=== PATIENT | male | born 2005 | race Two or more races ===

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

== ENCOUNTER 2023-10-07 10:17 | Emergency (ER) | payer OTHER ==
[~2023-10-07] VITALS: Ht 190.5 cm; Wt 172.9 kg
[2023-10-07 11:17] VITALS: BP 140/84; PULSE 58; RESP 16; TEMP 97.5; O2SAT 99
== END 2023-10-07 12:56 | disposition home or self-care (01) ==
LOC: ER 10:17
DX: S00.03XA Contusion of scalp, initial encounter (principal); R51.9 Headache, unspecified; W22.8XXA Striking against or struck by other objects, initial encounter; Y93.89 Activity, other specified; Y92.89 Other specified places as the place of occurrence of the external cause; Y99.8 Other external cause status
CPT/HCPCS: 70450

== ENCOUNTER 2024-04-20 13:12 | Emergency (ER) | payer OTHER ==
[~2024-04-20] VITALS: Ht 190.5 cm; Wt 173.7 kg
[2024-04-20 13:35] VITALS: BP 133/69; PULSE 81; RESP 18; TEMP 98.3; O2SAT 98
[2024-04-20] MEDS ORDERED: IBUP-1456 PO (13:46)
== END 2024-04-20 14:05 | disposition home or self-care (01) ==
LOC: ER 13:15
DX: S93.491A Sprain of other ligament of right ankle, initial encounter (principal); X50.1XXA Overexertion from prolonged static or awkward postures, initial encounter; Y93.89 Activity, other specified; Y92.89 Other specified places as the place of occurrence of the external cause; Y99.8 Other external cause status

== ENCOUNTER 2024-12-13 19:30 | Inpatient (IN) | payer OTHER ==
[~2024-12-13] VITALS: Ht 190.5 cm; Wt 177.4 kg
[~2024-12-13 19:30] MED LIST: IBUP-1456 PO
--- NOTE | 2024-12-13 19:40 | ED.PDOC ---
GI ASSESSMENT HPI Comments This is a 19 year old male presenting to the ED with chief complaint of abdominal pain and syncope. EMS reports that the patient has been experiencing diarrhea all day today, then started to have epigastric pain since 2pm. EMS relays that while the patient was at the pool with his children, he needed to go to the bathroom and then started to experience cold sweats and an associated near-syncopal episode. Patient states that he called 911 upon going home from the pool where EMS examined him and advised him to call again if his symptoms continued. Patient notes that he called 911 again due to continue to feel weak and having diarrhea/abdominal pain. Patient denies any nausea, vomiting, chest pain, SOB, fever, or chills. Time Seen by MD: 19:35 Primary Care Provider: [place] Reviewed Notes: Nurses Notes, Business Project Analyst Notes, Medications, Allergies Allergies: Coded Allergies: NO KNOWN ALLERGIES (Unverified , 02/16/10) Home Meds Active Scripts Ibuprofen (Ibuprofen) 800 Mg Tab, 1 TAB PO TID, #30 TAB Prov:MIREYA LOCKE 04/20/24 Information Source: Patient, Emergency Med Personnel Mode of Arrival: EMS Timing: Hours Duration: Since onset Prehospital treatment: None Quality: Sharp Vomitus: None Stool: Watery Severity: Moderate Recent: None Recent Hx of: None Pain Location: Epigastric Modifying Factors: Nothing Associated sign and symptoms: Diarrhea, Abdominal Pain Past Medical History PAST MEDICAL HISTORY: Denies Surgical History: Denies all surgeries Family History Family History: Reviewed,noncontributory to illness, Family hx of DM Social History Smoker: Non-Smoker Alcohol: Denies ETOH Use Drugs: Denies Drug Use Lives In: Home Constitutional: reports: sweats; denies: chills, diaphoresis, fatigue, fever, malaise, weakness, others EENTM: denies: blurred vision, double vision, ear bleeding, ear discharge, ear drainage, ear pain, ear ringing, eye pain, eye redness, hearing loss, mouth pain, mouth swelling, nasal discharge, nose bleeding, nose congestion, nose pain, photophobia, tearing, throat pain, throat swelling, voice changes, others Respiratory: denies: cough, hemoptysis, orthopnea, SOB at rest, shortness of breath, SOB with excertion, stridor, wheezing, others Cardiovascular: reports: syncope; denies: chest pain, dizzy spells, diaphoresis, Dyspnea on exertion, edema, irregular heart beat, left arm pain, lightheadedness, palpitations, PND, others Gastrointestinal: reports: abdominal pain, diarrhea; denies: abdomen distended, blood streaked bowels, constipated, dysphagia, difficulty swallowing, hematemesis, melena, nausea, poor appetite, poor fluid intake, rectal bleeding, rectal pain, vomiting, others Genitourinary: denies: burning, dysuria, flank pain, frequency, hematuria, incontinence, penile discharge, penile sore, pain, testicle pain, testicle swelling, urgency, others Neurological: denies: dizziness, fainting, headache, left sided numbness, left sided weakness, numbness, paresthesia, pre-existing deficit, right sided numbness, right sided weakness, seizure, speech problems, tingling, tremors, weakness, others Musculoskeletal: denies: back pain, gout, joint pain, joint swelling, muscle pain, muscle stiffness, neck pain, others Integumetry: denies: bruises, change in color, change in hair/nails, dryness, laceration, lesions, lumps, rash, wounds, others Allergic/Immunocompromised: denies: Difficulty Healing, Frequent Infections, Hives, Itching, others Hematologic/Lymphatic: denies: anemia, blood clots, easy bleeding, easy bruising, swollen glands, others Endocrine: denies: excessive hunger, excessive sweating, excessive thirst, excessive urination, flushing, intolerance to cold, intolerance to heat, unexplained weight gain, unexplained weight loss, others Psychiatric: denies: anxiety, bipolar disorder, depression, hopeless, panic disorder, schizophrenia, sleepless, suicidal, others All Other Systems: Reviewed and Negative Physical Exam General Appearance: Moderate Distress HEENT: Normal ENT Inspection, Pharynx Normal, TMs Normal Neck: Full Range of Motion, Non-Tender, Normal, Normal Inspection Respiratory: Chest Non-Tender, Lungs Clear, No Accessory Muscle Use, No Respiratory Distress, Normal Breath Sounds Cardiovascular: No Edema, No JVD, No Murmur, No Gallop, Normal Peripheral Pulses, Regular Rate/Rhythm Breast Exam: Deferred Gastrointestinal: Epigastric, No Organomegaly, No Pulsatile Mass, Normal Bowel Sounds, Soft, Tenderness Genitalia: Deferred Pelvic: Deferred Rectal: Deferred Extremities: No calf tenderness, Normal capillary refill, No pedal edema Musculoskeletal : Apperance: Normal Neurologic: Alert, labor law professor II-XII nml as Tested, Motor Weakness, Normal Affect, Normal Mood, No Sensory Deficits Cerebellar Function: Normal Reflexes: Normal Skin: Dry, Normal Color, Warm Lymphatic: No Adenopathy EKG EKG : Pulse Rate (adult): 75 [place]: Normal Cardiac Rhythm: NSR Block: None Hypertrophy: None ST: Normal Was a procedure done? Was a procedure done?: No GI differential Dx Differential Diagnosis: Appendicitis, Gastritis/PUD, Gastroenteritis, Pancreatitis, UTI, Electrolyte Imbalance, Food Poisoning X-Ray, Labs, Meds, VS Vital Signs Date Time Temp Pulse Resp B/P (MAP) Pulse Ox O2 Delivery O2 Flow Rate FiO2 12/13/24 19:40 75 12/13/24 19:38 75 12/13/24 19:35 97.8 90 24 128/71 (90) 100 97.8 Lab Test 12/13/24 20:45 12/13/24 19:54 Range/Units Troponin I High Sensitivity Pending < 3 L </=54 ng/L White Blood Count 27.7 H 4.4-10.8 10^3/uL Red Blood Count 5.99 H 4.5-5.90 10^6/uL Hemoglobin 15.3 13.5-17.5 g/dL Hematocrit 46.7 41.0-53.0 % Mean Corpuscular Volume 78.0 L 80.0-100.0 fL Mean Corpuscular Hemoglobin 25.6 L 28.0-32.0 pg Mean Corpuscular Hemoglobin Concent 32.8 32.0-36.0 g/dL Red Cell Distribution Width 14.3 11.8-14.3 % Platelet Count 424 140-450 10^3/uL Mean Platelet Volume 7.3 6.9-10.8 fL Neutrophils (%) (Auto) 37.0-80.0 % Lymphocytes (%) (Auto) 10.0-50.0 % Monocytes (%) (Auto) 0.0-12.0 % Basophils (%) (Auto) 0.0-2.0 % Neutrophils # (Auto) 1.6-8.6 10 ^3/uL Lymphocytes # (Auto) 0.4-5.4 10 ^3/uL Monocytes # (Auto) 0-1.3 10 ^3/uL Differential Total Cells Counted 100.0 100 Neutrophils % (Manual) 88 H 37.0-80.0 Band Neutrophils % (Manual) 4 Lymphocytes % (Manual) 4 L 10.0-50.0 Monocytes % (Manual) 3 0-12 Eosinophils % (Manual) 1 0-7 Basophils % (Manual) 0 0.0-2.0 Metamyelocytes % (manual) 0 Myelocytes % (Manual) 0 Promyelocytes % (Manual) 0 Blast Cells % (Manual) 0 Reactive Lymphocytes 0 Platelet Estimate Adequate Microcytosis Slight Sodium Level 143 136-145 mmol/L Potassium Level 4.0 3.5-5.1 mmol/L Chloride Level 107 98-107 mmol/L Carbon Dioxide Level 25 20-31 mmol/L Anion Gap 11 5-15 Blood Urea Nitrogen 14 9-23 mg/dL Creatinine 1.28 0.700-1.30 mg/dL Glomerular Filtration Rate Calc 82 >90 mL/min BUN/Creatinine Ratio 10.9 10.0-20.0 Serum Glucose 100 74-106 mg/dL Calcium Level 10.7 H 8.7-10.4 mg/dL The chest x-ray is negative The CBC shows an elevated white blood cell count of 27 0.7 The troponin level is negative The chemistry panel is within limits An IV Hep-Lock was established and the patient was given normal saline as a bolus The patient is being admitted at this time Images Reviewed?: Images reviewed and evaluated by me Time of 1ST Reevaluation: 21:22 Reevaluation 1ST: Unchanged Patient Education/Counseling: Diagnosis, Treatment, Prognosis Family Education/Counseling: No Family Present SEPSIS Sepsis Screen Physician Orders Heplock Iv (12/13/24 19:35) Sodium Chloride 0.9% (12/13/24 19:45) Executive Vice President And Chief Financial Officer (12/13/24 19:35) Blood Pressure (12/13/24 19:35) Pulse Oximetry (12/13/24 19:35) Urinalysis (12/13/24 19:35) Electrocardigram (12/13/24 19:35) Troponin-I Hs (12/13/24 20:35) Troponin-I Hs (12/13/24 22:35) Electrocardigram (12/13/24 20:35) Electrocardigram (12/13/24 22:35) Chest Portable (12/13/24 20:17) Vital Signs Date Time Temp Pulse Resp B/P (MAP) Pulse Ox O2 Delivery O2 Flow Rate FiO2 12/13/24 19:40 75 12/13/24 19:38 75 12/13/24 19:35 97.8 90 24 128/71 (90) 100 97.8 Laboratory Tests Test 12/13/24 19:54 White Blood Count 27.7 10^3/uL (4.4-10.8) H Departure 1 Departure Time of Disposition: 21:22 Impression: Primary Impression: Episode of syncope Qualified Codes: R55 - Syncope and collapse Additional Impressions: Generalized weakness Diarrhea Qualified Codes: R19.7 - Diarrhea, unspecified Leukocytosis Qualified Codes: D72.829 - Elevated white blood cell count, unspecified Disposition: ADMITTED INPATIENT Admit to: Med Surg Condition: Fair Critical Care Note Critical Care Time?: No Stability Stability form required: Yes Unstable for transfer: ED Physician Assesment (Clinical assesment) Heart Score Heart Score: Heart Score Response (Comments) Value History N/A 0 EKG N/A 0 Age N/A 0 Risk Factors N/A 0 Troponin N/A 0 Total 0 I personally scribed for CHELSEA BAUTISTA MD ([email or web address]) on 12/13/24 at 19:40. Electronically submitted by Han Arellano ([email or web address]). CHELSEA BAUTISTA MD Dec 13, 2024 19:40
[2024-12-13] MEDS: SODIUM CHLORIDE 0.9% 1,000 ML IVB ONE (19:45)
[2024-12-13 20:08] LABS: Hematocrit 46.7 % (41.0-53.0); Hemoglobin 15.3 g/dL (13.5-17.5); Mean Corpuscular Hemoglobin 25.6 pg (28.0-32.0); Mean Corpuscular Hgb Conc. 32.8 g/dL (32.0-36.0); Platelet Count (auto) 424 10^3/uL (140-450); Red Blood Cells 5.99 10^6/uL (4.5-5.90); Red Cell Distribution Width 14.3 % (11.8-14.3); White Blood Cell 27.7 10^3/uL (4.4-10.8)
[2024-12-13 20:10] LABS: Basophils % (manual) 0 (0.0-2.0); Blast Cells 0; Metamyelocytes % 0; Myelocytes % 0; Promyelocytes % 0; Reactive Lymphocytes 0
[2024-12-13 20:15] LABS: Chloride 107 mmol/L (98-107); Sodium 143 mmol/L (136-145)
[2024-12-13 20:16] LABS: Anion Gap 11 (5-15); Carbon Dioxide 25 mmol/L (20-31)
[2024-12-13 20:21] LABS: Glucose 100 mg/dL (74-106)
[2024-12-13 20:30] LABS: Band Neutrophils % (manual) 4; Eosinophils % (manual) 1 (0-7); Lymphocytes % (manual) 4 (10.0-50.0); Monocytes % (manual) 3 (0-12); Platelet Estimate Adequate
[2024-12-13 20:37] LABS: Calcium 10.7 mg/dL (8.7-10.4)
[2024-12-13 20:38] LABS: BUN/Creatinine Ratio 10.9 (10.0-20.0); Blood Urea Nitrogen 14 mg/dL (9-23)
--- NOTE | 2024-12-13 21:12 | DVH ---
CHEST RADIOGRAPH Indication: CP Technique: Single frontal view of the chest was obtained Comparison: None FINDINGS: Lines and Tubes: None Lungs: No focal consolidation. Pleura: No effusion. No pneumothorax. Cardiomediastinal contours: Unremarkable Bones: No acute osseous abnormality. IMPRESSION: 1. No acute cardiopulmonary disease.
[2024-12-13] MEDS: SODIUM CHLORIDE 0.9% 1,000 ML IV ONE (22:15)
[2024-12-13] MEDS ORDERED: ceFAZolin 2 GM/D5W50ml 50 ML IV ONE (22:15)
[2024-12-13] MEDS: ONDANSETRON HCL 4 MG/2 ML VIAL IV ONE (22:15)
[2024-12-13] MEDS: IOHEXOL 300 MG/ML 100ML BOTTLE IJ ONE (22:19)
[2024-12-13] MEDS ORDERED: MORPHINE SULFATE INJ 2 MG/ml SYRG IV PRN ×2 (22:45)
[2024-12-13] MEDS: SODIUM CHLORIDE 0.9% 1,000 ML IV SCH (22:45)
[2024-12-13] MEDS ORDERED: ONDANSETRON HCL 4 MG/2 ML VIAL IV PRN (22:45)
[2024-12-13] MEDS ORDERED: NITROGLYCERIN 0.4 MG SL TAB SL PRN (22:45)
[2024-12-13] MEDS ORDERED: ACETAMINOPHEN 325 MG TAB PO PRN (22:45)
[2024-12-13] MEDS ORDERED: [UNRECOGNIZED DRUG - OTHER] IV ONE (23:15)
--- NOTE | 2024-12-13 23:19 | DVHHPRES ---
History of Present Illness Resident Creating Document: LUIZ GUZMAN RESIDENT History of Present Illness Mr. Garcia, a 19-year-old male with no significant past medical or surgical history presents to the ED via EMS with complaints of epigastric abdominal pain and a near-syncopal episode. He reports experiencing watery diarrhea throughout the day, followed by the onset of sharp epigastric pain around 2 PM. While at the pool with his children, he developed cold sweats and nearly fainted after using the restroom. He initially contacted EMS but declined transport; however, he called again after symptoms persisted, including continued weakness, diarrhea, and abdominal pain. He denies nausea, vomiting, chest pain, shortness of breath, fever, or chills. He is a non-smoker, denies alcohol and drug use, and lives at home. Differential diagnoses include gastroenteritis, gastritis/PUD, appendicitis, pancreatitis, UTI, electrolyte imbalance, Intra- abdominal abscess, and foodborne illness. Patient is admitted in hospital for further workup and management. Past Medical History Denies past medical history Past Surgical History: None Past Surgical History Denies past surgical history Family History: None, DM, Other (Noncontributory the hospitalization) Smoke: No ALCOHOL: rare Drugs: None Lives: with Family (Children family) Domestic Violence: Neg Review of Systems Constitutional: Yes: Chills, Sweats, Weakness, Malaise; No: Fever, Other Eyes: No: Pain, Vision change, Conjunctivae inflammation, Eyelid inflammation, Other, Redness ENT: No: Ear pain, Ear discharge, Nose pain, Nose discharge, Nose congestion, Mouth pain, Mouth swelling, Throat pain, Throat swelling, Other Respiratory: No: Cough, Dry, Shortness of breath, SOB with excertion, Wheezing, Hemoptysis, Pleuritic Pain, Sputum, Wheezing, Other Cardiovascular: Lt Headedness; No: Chest Pain, Palpitations, Orthopnea, Paroxysmal Noc. Dyspnea, Edema, Other Gastrointestinal: Nausea, Vomiting, Abdominal Pain, Diarrhea; No: Constipation, Melena, Hematochezia, Other Genitourinary: No Dysuria, No Frequency, No Incontinence, No Hematuria, No Retention, No Other Musculoskeletal: No: other, neck pain, shoulder pain, arm pain, back pain, hand pain, leg pain, foot pain Skin: No: Rash, Lesions, Jaundice, Bruising, Other Neurological: No: Weakness, Numbness, Incoordination, Change in speech, Confusion, Seizures, Other Allergies: Coded Allergies: NO KNOWN ALLERGIES (Unverified , 02/16/10) Medications Current Medications Medications Dose Ordered Sig/Felipe Route Start Time Stop Time Status Last Admin Dose Admin Sodium Chloride 1,000 ml @ 120 mls/hr Q8H20M IV 12/13/24 22:45 Ondansetron HCl 4 mg Q4HP PRN IV 12/13/24 22:45 Acetaminophen 650 mg Q6HP PRN PO 12/13/24 22:45 Morphine Sulfate 2 mg Q4HPRN PRN IV 12/13/24 22:45 Nitroglycerin 0.4 mg Q5MINP PRN SL 12/13/24 22:45 Morphine Sulfate 2 mg Q30M PRN IV 12/13/24 22:45 Pantoprazole Sodium 40 mg BID IV 12/13/24 23:00 UNV Exam Vital Signs Vital Signs Date Time Temp Pulse Resp B/P (MAP) Pulse Ox O2 Delivery O2 Flow Rate FiO2 12/13/24 21:45 98.5 98 19 134/81 (98) 96 98.5 General Appearance: Alert, Oriented X3, Cooperative, mild distress HEENT: Atraumatic, PERRLA, EOMI, Other (Dry mucous membrane, low turgor) Respiratory: Clear to auscultation, Normal air movement, Other (Breathing in the room air) Cardiovascular: Regular rate, Normal S1, Normal S2, No murmurs, Other (Hemodynamically stable) Abdominal: Soft, No hepatospenomegaly, No masses, Other (Increased GI bowel sounds no focal tenderness noted.) Extremities: No clubbing, No cyanosis, No edema, Normal pulses, No tenderness/swelling Skin: No rashes, No breakdown, No significant lesion Neuro: Normal gait, Normal speech, Strength at 5/5 X4 ext, Normal tone, Sensation intact, Cranial nerves 3-12 NL, Reflexes 2+, Other (No focal neuro deficits) Psych/Mental Status: Mental status NL, Mood NL, Other (Tired) Labs/Xrays Labs Test 12/13/24 20:54 12/13/24 20:45 12/13/24 19:54 Range/Units Troponin I High Sensitivity < 3 L </=54 ng/L White Blood Count 27.7 H 4.4-10.8 10^3/uL Red Blood Count 5.99 H 4.5-5.90 10^6/uL Hemoglobin 15.3 13.5-17.5 g/dL Hematocrit 46.7 41.0-53.0 % Mean Corpuscular Volume 78.0 L 80.0-100.0 fL Mean Corpuscular Hemoglobin 25.6 L 28.0-32.0 pg Mean Corpuscular Hemoglobin Concent 32.8 32.0-36.0 g/dL Red Cell Distribution Width 14.3 11.8-14.3 % Platelet Count 424 140-450 10^3/uL Mean Platelet Volume 7.3 6.9-10.8 fL Neutrophils (%) (Auto) 37.0-80.0 % Lymphocytes (%) (Auto) 10.0-50.0 % Monocytes (%) (Auto) 0.0-12.0 % Basophils (%) (Auto) 0.0-2.0 % Neutrophils # (Auto) 1.6-8.6 10 ^3/uL Lymphocytes # (Auto) 0.4-5.4 10 ^3/uL Monocytes # (Auto) 0-1.3 10 ^3/uL Differential Total Cells Counted 100.0 100 Neutrophils % (Manual) 88 H 37.0-80.0 Band Neutrophils % (Manual) 4 Lymphocytes % (Manual) 4 L 10.0-50.0 Monocytes % (Manual) 3 0-12 Eosinophils % (Manual) 1 0-7 Basophils % (Manual) 0 0.0-2.0 Metamyelocytes % (manual) 0 Myelocytes % (Manual) 0 Promyelocytes % (Manual) 0 Blast Cells % (Manual) 0 Reactive Lymphocytes 0 Platelet Estimate Adequate Microcytosis Slight Sodium Level 143 136-145 mmol/L Potassium Level 4.0 3.5-5.1 mmol/L Chloride Level 107 98-107 mmol/L Carbon Dioxide Level 25 20-31 mmol/L Anion Gap 11 5-15 Blood Urea Nitrogen 14 9-23 mg/dL Creatinine 1.28 0.700-1.30 mg/dL Glomerular Filtration Rate Calc 82 >90 mL/min BUN/Creatinine Ratio 10.9 10.0-20.0 Serum Glucose 100 74-106 mg/dL Calcium Level 10.7 H 8.7-10.4 mg/dL Assessment/Plan Assessment/Plan #intra-abdominal infection/diarrhea/questionable Dysentery: Acute dysentery, send stool culture, ova parasite, check for MRSA inflammatory bowel disease, GI consult, might need, details sexual history, HIV and immunodeficiency panel to check. CT abdomen pelvis with IV contrast And oral contrast to check. keep the patient NPO. IV hydration to continue. IV Zosyn started to cover both g negatives and anaerobes. CXR unremarkable, no free gas under the diaphragm, nonsurgical abdomen. #Epigastric pain: Microcytic anemia might be early signs of iron deficiency anemia, slow GI bleed, on chronic ibuprofen, continue IV ppi, GI consultation for EGD. #Generalized weakness/ malaise: Likely due to underlying infection, dehydration, possible electrolyte loss, check electrolytes and correct appropriately. #episode of Near syncope: Check Orthostatic vitals, likely GI bleed to rule out, echo, telemetry, check for UDS, alcohol, troponin Unremarkable, EKG. likely due to intravascular hypovolemia, fluid loss, keep the map over 65.. Headache, CT head to rule out any intracranial pathology. differentials include vasovagal attack. #Sepsis likely due to intra-abdominal infection: Check lactate, continue sepsis dose fluid and continue hydration, keep the patient NPO. #Mild hypercalcemia: check albumin, check corrected calcium, ESR CRP to check, avoid lactate. #Possible underlying chronic blood-loss anemia: transfusion threshold 7 or below of hemoglobin, continue IV PPI b.i.d for possible underlying epigastric discomfort, If bleeding not controlled, we will upgrade to IV PPI continuous infusion. Check for PT PICC/PTT/ INR. #Likely underlying chronic iron-deficiency anemia: Check for iron panel, elly tin, replenish as needed. if needed IV iron infusion, advised today for from chronic NSAID use #Grade 3 morbid obesity: BMI of 48.09, weight loss counseling, check for TSH, lipid panel and HbA1c #Possible KELLY likely due to VMN: hydration to continue, avoid nephrotoxic, no known baseline , serial renal function test #Possible underlying CKD stage IV: Although it is a presumption, GFR 82, follow trend, unfortunately low previous labs available. #GI prophylaxis: IV PPI b.i.d. for now with possible underlying GI bleed> stool occult blood to check> if ruled out can be changed to daily IV PPI/oral for possible underlying PUD #DVT prophylaxis: SCDs: Avoid aspirin NSAIDs and anticoagulation. PCP: Dr. Gabriel. Specialist Relevant To Admission: GI/ Gastroenterology for GI bleed needing further evaluation with endoscopic measures. Case discussed with Dr. Yi. Code Status: Full Code. Goals of care and care planning discussion needed total 37 minutes bedside. Patient is agreeable to admission to the in-hospital for further workup and management. Plan discussed with: Patient My Orders Orders - LUIZ GUZMAN RESIDENT Procedure Category Date Status Time Admit ADMIT 12/13/24 Transmitted 22:39 Allergies ARDEN 12/13/24 In Process 22:39 Code Status CODE 12/13/24 Transmitted 22:39 Sodium Chloride 0.9% PHA 12/13/24 In Process 22:45 Ondansetron Hcl PHA 12/13/24 In Process (Zofran) 22:45 Complete Blood Count LAB 12/14/24 Verified 04:00 Comprehensive LAB 12/14/24 Verified Metabolic Panel 04:00 Npo (Nothing By DIET 12/14/24 Transmitted Mouth) Diet Breakfast Condition: Critical ARDEN 12/13/24 In Process 22:39 Acetaminophen Tablet PHA 12/13/24 In Process (Tylenol Tablet) 22:45 Bedrest With Bathroom ARDEN 12/13/24 In Process Privileg 22:39 Bedside Commode ARDEN 12/13/24 In Process 22:39 Morphine Sulfate PHA 12/13/24 In Process Injection 22:45 Sequential ARDEN 12/13/24 In Process Compression Device Nitroglycerin PHA 12/13/24 In Process Sublingual (Ntrostat 22:45 Morphine Sulfate PHA 12/13/24 In Process Injection 22:45 Oxygen By Nasal RT 12/13/24 Transmitted Cannula 22:39 Stat Ekg For Chest ARDEN 12/13/24 In Process Pain 22:39 Notify Md Of Changes ARDEN 12/13/24 In Process From Base 22:39 Wildlife Biostation Research Ecologist For ARDEN 12/13/24 In Process 24 Hours 22:39 Emergency Dysrhythmia ARDEN 12/13/24 In Process Protocol 22:39 Rhythm Strips Once ARDEN 12/13/24 In Process Every Shift 22:39 Piperacillin-Tazob PHA 12/13/24 In Process 3.375gm (Zosyn 3.375g 23:00 Thyroid Stimulating LAB 12/13/24 In Process Hormone 22:52 Drug Screen LAB 12/13/24 Logged 22:52 Hepatic Panel LAB 6/25/25 In Process 22:52 Clostridium Difficile JULIO 12/13/24 Logged Toxin 22:52 Ova & Parasite Exam JULIO 12/13/24 Logged 22:52 Stool Bacterial JULIO 12/13/24 Logged Culture 22:52 Gram Stain JULIO 12/13/24 Logged 22:52 Stool Wbc LAB 12/13/24 Logged 22:52 Iron Panel LAB 12/13/24 In Process 22:52 Vancomycin Per [facility] 12/13/24 In Process Pharmacy Protoc 22:58 Pantoprazole PHA 12/13/24 In Process (Protonix) 23:00 Stool Occult Blood LAB 12/13/24 Logged 23:01 Fall Risk Precautions ARDEN 12/13/[address] 23:03 Orthostatic Vital ORDERS 12/13/24 Transmitted Signs 23:03 Hiv 1&2 Antibody LAB 12/13/24 Logged 23:03 Prothrombin Time W/ LAB 12/13/24 Logged INR 23:03 Partial LAB 12/13/24 Logged Thromboplastin Time 23:03 Lactic Acid W/ Reflex LAB 12/13/24 Logged Order 23:03 Lipase LAB 12/13/24 Logged 23:03 Blood Alcohol LAB 12/13/24 Logged 23:03 Date of Service: Dec 13, 2024 Billing Provider: DEWEY YI MD Common Visit Codes: 69621-[id number] INP/OBS CARE (HIGH) Secondary Visit Codes: [id number]-[id number] CARE PLAN 30 MINUTES LUIZ GUZMAN RESIDENT Dec 13, 2024 23:19
[2024-12-13 23:25] LABS: Albumin 5.2 g/dL (3.2-4.8); Bilirubin, Direct 0.2 mg/dL (<0.3); Bilirubin, Total 0.7 mg/dL (0.2-1.0); Total Protein 8.8 g/dL (5.7-8.2)
[2024-12-13 23:39] LABS: % Iron Saturation 8.4 % (20-55)
[2024-12-13 23:45] LABS: INR 0.98 (0.9-1.15); Partial Thromboplastin Time 27.4 SEC (24.5-34.5); Prothrombin Time 10.4 sec (9.3-11.8)
[2024-12-13 23:48] LABS: Blood Alcohol < 3.0 mg/dL (<10)
[2024-12-14] VITALS (9 sets, daily range): BP systolic 112–150; BP diastolic 59–92; PULSE 62–102; RESP 18–20; TEMP 97.8–98.9; O2SAT 96–99
--- NOTE | 2024-12-14 00:02 | DVH ---
EXAM: CT HEAD WITHOUT CONTRAST INDICATION: abdominal pain TECHNIQUE: CT of the head without intravenous contrast. Radiation Dose : 1. Head: CT Dose: CTDI volume is 69 mGy. Dose-length product is 1367 mGy*cm The dose indicators for CT are the volume Computed Tomography (CT) Dose Index (CTDIvol) and the Dose Length Product (DLP), and are measured in units of mGy and mGy-cm, respectively. These indicators are not patient dose, but values generated from the CT scanner acquisition factors. The report includes radiation exposure data for exposures received during this examination. COMPARISON: CT HEAD WITHOUT CONTRAST on DOS: 10/07/23 FINDINGS: There is no evidence of acute intracranial hemorrhage, extra-axial collection, mass effect, midline s hift, herniation or hydrocephalus. The ventricles, sulci and cisterns are age appropriate. The harden-white differentiation is intact. Patchy periventricular and subcortical white matter hypoattenuation is nonspecific but may be related to small vessel ischemic disease. The visualized paranasal sinuses and mastoid air cells are clear. The surrounding soft tissues and osseous structures are unremarkable. IMPRESSION: 1. No acute intracranial abnormality. Radiation optimization: All CT scans at this facility use at least one of these dose optimization james hniques: automated exposure control mA and/or kV adjustment per patient size (includes targeted exam s where dose is matched to clinical indication) or iterative reconstruction.
[2024-12-14 00:07] LABS: Lipase 34 U/L (12-53)
[2024-12-14 00:13] LABS: Erythrocyte Sedimentation Rate 15 mm/hr (0-20)
--- NOTE | 2024-12-14 01:37 | DVH ---
CT OF THE ABDOMEN AND PELVIS WITH CONTRAST. HISTORY: abdominal pain COMPARISON: None TECHNIQUE: Helical axial CT images of the abdomen and pelvis were obtained with intravenous contrast. Multiplanar reformats. One or more of the following radiation dose reduction techniques were used fo r this examination: automated exposure control, adjustment of the mA and/or kV according to patient s ize, use of iterative reconstruction technique. FINDINGS: Imaged lung bases are grossly clear. Liver: No discrete hepatic lesions as visualized. Gallbladder and biliary system: No sizable, radiopaque cholelithiasis or biliary ductal dilatation. Pancreas: Negative. Spleen: Negative. Adrenal Glands: Negative. Kidneys and collecting system: No hydroureteronephrosis. Symmetrical enhancement. Retroperitoneum: No evidence of abdominal aortic aneurysm. Lymph nodes: No discretely enlarged lymph nodes identified. Bowel: No evidence of bowel obstruction. Normal caliber appendix. No free intraperitoneal air or flu id identified. Pelvis: No sizable bladder calculus. Small fat containing right inguinal hernia. Osseous structures: No destructive osseous lesions identified. IMPRESSION: No bowel obstruction, free intraperitoneal air/ fluid or sizable inflammatory collections identified at this time. HS:Y
[2024-12-14] MEDS: PIPERACILLIN-TAZOB 3.375GM 100 ML IV ONE (01:50)
[2024-12-14] MEDS: PANTOPRAZOLE 40 MG/10 ML VIAL INJ IV SCH (01:50)
[2024-12-14 08:07] LABS: Basophils # (auto) 0 10 ^3/uL (0-0.2); Basophils % (auto) 0.1 % (0.0-2.0); Eosinophils # (auto) 0.1 10 ^3/uL (0-0.8)
[2024-12-14 08:11] LABS: Eosinophils % (auto) 0.6 % (0.0-7.0); Hematocrit 42.7 % (41.0-53.0); Hemoglobin 14.1 g/dL (13.5-17.5); Lymphocytes % (auto) 7.2 % (10.0-50.0); Mean Corpuscular Hemoglobin 25.6 pg (28.0-32.0); Mean Corpuscular Hgb Conc. 33.1 g/dL (32.0-36.0); Mean Corpuscular Volume 77.4 fL (80.0-100.0); Monocytes # (auto) 0.8 10 ^3/uL (0-1.3); Monocytes % (auto) 6.3 % (0.0-12.0); Neutrophils # (auto) 11.4 10 ^3/uL (1.6-8.6); Neutrophils % (auto) 85.8 % (37.0-80.0); Platelet Count (auto) 403 10^3/uL (140-450); Red Blood Cells 5.51 10^6/uL (4.5-5.90); White Blood Cell 13.3 10^3/uL (4.4-10.8)
[2024-12-14 08:23] LABS: Alanine Aminotransferase 21 U/L (7-40); Alkaline Phosphatase 111 U/L (46-116); Anion Gap 9 (5-15); BUN/Creatinine Ratio 10.8 (10.0-20.0); Blood Urea Nitrogen 13 mg/dL (9-23); Calcium 9.9 mg/dL (8.7-10.4); Carbon Dioxide 26 mmol/L (20-31); Chloride 106 mmol/L (98-107); Glucose 105 mg/dL (74-106); Potassium 3.8 mmol/L (3.5-5.1); Sodium 141 mmol/L (136-145)
[2024-12-14 08:24] LABS: Albumin 4.8 g/dL (3.2-4.8); Aspartate Aminotransferase 17 U/L (<34)
[2024-12-14] MEDS ORDERED: VANCOMYCIN PER PHARMACY 0 MG IV SCH (08:30)
[2024-12-14 09:36] LABS: Urine Bacteria None Seen /hpf (None Seen)
[2024-12-14] MEDS: VANCOMYCIN 1GM/200ML PM 250 ML IV SCH (09:42)
[2024-12-14 10:12] LABS: Amphetamine Screen, Urine Neg (NEGATIVE); Barbiturate Scree,Urine Neg (NEGATIVE); Benzodiazephine Screen, Urine Neg (NEGATIVE); Cannabinoid Screen, Urine Pos (NEGATIVE); Cocaine Screen, Urine Neg (NEGATIVE); Opiate Scree,Urine Neg (NEGATIVE); Phencyclidine Screen, Urine Neg (NEGATIVE)
[2024-12-14 10:18] LABS: Urine Blood Negative /uL (Negative); Urine Clarity Clear (Clear); Urine Color Yellow (Yellow); Urine Protein, UAD TRACE (Negative); Urine Squamous Epithelial Cell None Seen /hpf (<5); Urine Urobilinogen Normal (Negative); Urine WBC 1 /HPF (0-3); Urine pH 5.5 (5.0-9.0)
[2024-12-14 10:19] LABS: Urine Specific Gravity > 1.050 (1.001-1.035)
--- NOTE | 2024-12-14 10:56 | ECG ---
[facility] Test Date: 2024-12-13 Test Time: 19:38:21 Pat Name: AISHA MORELAND Department: ED Room: 0212T Gender: M [employer] Team Leader: : 2005 Requested By: CHELSEA BAUTISTA Order Number: [id number] Reading MD: Charli Diallo Measurements Intervals [place] Rate: 75 P: 60 NE: 128 QRS: 69 QRSD: 98 T: -1 QT: 389 QTc: 435 Interpretive Statements Sinus rhythm Borderline T wave abnormalities Electronically Signed On 12-16-2024 20:03:15 PDT by Charli Diallo Please click the below link to view image of tracing.
[2024-12-14] MEDS: cefTRIAXone 1GM/50ML D5W 50 ML IV SCH (12:16)
[2024-12-14] MEDS: SODIUM CHLORIDE 0.9% 1,000 ML IV ONE ×2 (12:49→23:43)
[2024-12-14] MEDS: metroNIDAZOLE 500MG/100ML 100 ML IV SCH (14:45)
--- NOTE | 2024-12-14 15:29 | DVHPNRES ---
Progress Note Date Seen: Dec 14, 2024 Resident Creating Document: GAIL ANGUIANO RESIDENT Has the PT tested + for MRSA If YES, has PT been informed?: No Medical Necessity Reason Pt with a Central, PICC or Fol: No Subjective Review of Systems Mr. Garcia, a 19-year-old male with no significant past medical or surgical history presents to the ED via EMS with complaints of epigastric abdominal pain and a near-syncopal episode. He reports experiencing watery diarrhea throughout the day, followed by the onset of sharp epigastric pain around 2 PM. While at the pool with his children, he developed cold sweats and nearly fainted after using the restroom. He initially contacted EMS but declined transport; however, he called again after symptoms persisted, including continued weakness, diarrhea, and abdominal pain. He denies nausea, vomiting, chest pain, shortness of breath, fever, or chills. He is a non-smoker, denies alcohol and drug use, and lives at home. Differential diagnoses include gastroenteritis, gastritis/PUD, appendicitis, pancreatitis, UTI, electrolyte imbalance, Intra- abdominal abscess, and foodborne illness. Patient is admitted in hospital for further workup and management. Past Medical History Denies past medical history Past Surgical History: None Past Surgical History Denies past surgical history Family History: None, DM, Other (Noncontributory the hospitalization) Smoke: No ALCOHOL: rare Drugs: None Lives: with Family (Children family) Domestic Violence: Neg 12/14/24: campylobacter isolated, azythromycin started, continue metronidazole, IV fluids given 1LT bolus Objective vital signs Vital Sign Date Time Temp Pulse Resp B/P (MAP) Pulse Ox O2 Delivery O2 Flow Rate FiO2 12/14/24 13:45 97.8 73 18 121/71 (88) 98 97.8 12/14/24 04:16 Room Air* 0 21 Total Intake and Output 12/13/24 12/13/24 12/14/24 15:00 23:00 07:00 Intake Total 100 ml Balance 100 ml medications Current Medications Medications Dose Ordered Sig/Felipe Route Start Time Stop Time Status Last Admin Dose Admin Ondansetron HCl 4 mg Q4HP PRN IV 12/13/24 22:45 Acetaminophen 650 mg Q6HP PRN PO 12/13/24 22:45 Pantoprazole Sodium 40 mg BID IV 12/13/24 23:00 12/14/24 09:41 40 MG Ceftriaxone Sodium 50 ml @ 100 mls/hr DAILY@09 IV 12/14/24 11:15 12/14/24 12:16 100 MLS/HR Metronidazole 100 ml @ 100 mls/hr Q8HR IV 12/14/24 14:00 12/14/24 14:45 100 MLS/HR Examination General Appearance: Alert, Oriented X3, Cooperative, mild distress HEENT: Atraumatic, PERRLA, EOMI, Other (Dry mucous membrane, low turgor) Respiratory: Clear to auscultation, Normal air movement, Other (Breathing in the room air) Cardiovascular: Regular rate, Normal S1, Normal S2, No murmurs, Other (Hemodynamically stable) Abdominal: Soft, No hepatospenomegaly, No masses, Other (Increased GI bowel sounds no focal tenderness noted.) Extremities: No clubbing, No cyanosis, No edema, Normal pulses, No tenderness/swelling Skin: No rashes, No breakdown, No significant lesion Neuro: Normal gait, Normal speech, Strength at 5/5 X4 ext, Normal tone, Sensation intact, Cranial nerves 3-12 NL, Reflexes 2+, Other (No focal neuro deficits) Psych/Mental Status: Mental status NL, Mood NL, laboratory and microbiology Laboratory Tests 12/14/24 07:23 Test 12/14/24 07:23 Range/Units Serum Glucose 105 74-106 mg/dL Microbiology Date/Time Source Procedure Growth Status 12/14/24 08:30 Stool Received Problem List/Assessment/Plan Problem List/Assessment/Plan #Sepsis due to Acute bacterial gastroenteritis due to campylobacter jejuni #Obesity #Marijuana abuse #KELLY due to VMN Clear liquid diet IV fluids given, 1 extra bolus of NS Azithromycin started Metronidazole Ondansetron Pantoprazole Case discussed with Dr Harrell Full code Plan discussed with: Patient, Other My Orders My Orders Orders - GAIL ANGUIANO Procedure Category Date Status Time Ceftriaxone 1gm/50ml PHA 12/14/24 In Process D5w (Rocephin) 11:15 Metronidazole PHA 12/14/24 In Process 500mg/100ml (Flagyl 14:00 Date of Service: Dec 14, 2024 Billing Provider: DIPTI HARRELL MD Common Visit Codes: [id number] INP/OBS CARE(HIGH) GAIL ANGUIANO Dec 14, 2024 15:29 DIPTI HARRELL MD Dec 18, 2024 22:03
[2024-12-14] MEDS: AZITHROMYCIN 500MG/ 250ML 250 ML IV SCH (19:00)
[2024-12-15] VITALS (7 sets, daily range): BP systolic 121–168; BP diastolic 54–93; PULSE 62–87; RESP 18; TEMP 97.8–98.7; O2SAT 98–100
[2024-12-15 06:08] LABS: Basophils # (auto) 0 10 ^3/uL (0-0.2); Lymphocytes # (auto) 1.6 10 ^3/uL (0.4-5.4); Monocytes % (auto) 13.1 % (0.0-12.0); Neutrophils # (auto) 4.6 10 ^3/uL (1.6-8.6); Nucleated Red Blood Cells % 0.1 %; Red Cell Distribution Width 14.3 % (11.8-14.3)
[2024-12-15 06:11] LABS: Basophils % (auto) 0.2 % (0.0-2.0); Eosinophils # (auto) 0.4 10 ^3/uL (0-0.8); Eosinophils % (auto) 4.9 % (0.0-7.0); Hematocrit 38.6 % (41.0-53.0); Hemoglobin 12.9 g/dL (13.5-17.5); Lymphocytes % (auto) 21.3 % (10.0-50.0); Mean Corpuscular Hemoglobin 25.9 pg (28.0-32.0); Mean Corpuscular Hgb Conc. 33.4 g/dL (32.0-36.0); Mean Corpuscular Volume 77.7 fL (80.0-100.0); Neutrophils % (auto) 60.5 % (37.0-80.0); Platelet Count (auto) 332 10^3/uL (140-450); Red Blood Cells 4.97 10^6/uL (4.5-5.90); White Blood Cell 7.7 10^3/uL (4.4-10.8)
[2024-12-15 06:29] LABS: Alanine Aminotransferase 25 U/L (7-40); Albumin 4.1 g/dL (3.2-4.8); Alkaline Phosphatase 91 U/L (46-116); Anion Gap 8 (5-15); Aspartate Aminotransferase 23 U/L (<34); BUN/Creatinine Ratio 9.4 (10.0-20.0); Bilirubin, Total 0.5 mg/dL (0.2-1.0); Blood Urea Nitrogen 12 mg/dL (9-23); Calcium 8.8 mg/dL (8.7-10.4); Carbon Dioxide 25 mmol/L (20-31); Glucose 91 mg/dL (74-106); Potassium 4.1 mmol/L (3.5-5.1); Sodium 141 mmol/L (136-145)
[2024-12-15 06:35] LABS: Chloride 108 mmol/L (98-107)
--- NOTE | 2024-12-15 16:14 | DVHPNRES ---
Progress Note Date Seen: Dec 15, 2024 Resident Creating Document: GAIL ANGUIANO RESIDENT Has the PT tested + for MRSA If YES, has PT been informed?: No Medical Necessity Reason Pt with a Central, PICC or Fol: No Subjective Review of Systems Mr. Garcia, a 19-year-old male with no significant past medical or surgical history presents to the ED via EMS with complaints of epigastric abdominal pain and a near-syncopal episode. He reports experiencing watery diarrhea throughout the day, followed by the onset of sharp epigastric pain around 2 PM. While at the pool with his children, he developed cold sweats and nearly fainted after using the restroom. He initially contacted EMS but declined transport; however, he called again after symptoms persisted, including continued weakness, diarrhea, and abdominal pain. He denies nausea, vomiting, chest pain, shortness of breath, fever, or chills. He is a non-smoker, denies alcohol and drug use, and lives at home. Differential diagnoses include gastroenteritis, gastritis/PUD, appendicitis, pancreatitis, UTI, electrolyte imbalance, Intra- abdominal abscess, and foodborne illness. Patient is admitted in hospital for further workup and management. Past Medical History Denies past medical history Past Surgical History: None Past Surgical History Denies past surgical history Family History: None, DM, Other (Noncontributory the hospitalization) Smoke: No ALCOHOL: rare Drugs: None Lives: with Family (Children family) Domestic Violence: Neg 12/14/24: campylobacter isolated, azythromycin started, continue metronidazole 12/15/24: 1 bowel movements, due to bacterial gastroenteritis we will continue monitor Objective vital signs Vital Sign Date Time Temp Pulse Resp B/P (MAP) Pulse Ox O2 Delivery O2 Flow Rate FiO2 12/15/24 09:00 97.8 75 18 132/62 (85) 98 97.8 12/15/24 08:00 Room Air* 0 21 Total Intake and Output 12/14/24 12/14/24 12/15/24 15:00 23:00 07:00 Intake Total 300 ml 220 ml 1000 ml Balance 300 ml 220 ml 1000 ml medications Current Medications Medications Dose Ordered Sig/Felipe Route Start Time Stop Time Status Last Admin Dose Admin Ondansetron HCl 4 mg Q4HP PRN IV 12/13/24 22:45 Acetaminophen 650 mg Q6HP PRN PO 12/13/24 22:45 Pantoprazole Sodium 40 mg BID IV 12/13/24 23:00 12/15/24 11:06 40 MG Metronidazole 100 ml @ 100 mls/hr Q8HR IV 12/14/24 14:00 12/15/24 14:35 100 MLS/HR Azithromycin 250 ml @ 125 mls/hr DAILY IV 12/14/24 16:45 12/15/24 11:06 125 MLS/HR Examination General Appearance: Alert, Oriented X3, Cooperative, mild distress HEENT: Atraumatic, PERRLA, EOMI, Other (Dry mucous membrane, low turgor) Respiratory: Clear to auscultation, Normal air movement, Other (Breathing in the room air) Cardiovascular: Regular rate, Normal S1, Normal S2, No murmurs, Other (Hemodynamically stable) Abdominal: Soft, No hepatospenomegaly, No masses, Other (Increased GI bowel sounds no focal tenderness noted.) Extremities: No clubbing, No cyanosis, No edema, Normal pulses, No tenderness/swelling Skin: No rashes, No breakdown, No significant lesion Neuro: Normal gait, Normal speech, Strength at 5/5 X4 ext, Normal tone, Sensation intact, Cranial nerves 3-12 NL, Reflexes 2+, Other (No focal neuro deficits) Psych/Mental Status: Mental status NL, Mood NL, laboratory and microbiology Laboratory Tests 12/15/24 05:22 Test 12/15/24 05:22 Range/Units Serum Glucose 91 74-106 mg/dL Microbiology Date/Time Source Procedure Growth Status 12/14/24 08:30 Stool Stool Culture - Preliminary Resulted 12/14/24 08:30 Stool Shiga Toxin I & II - Final Resulted 12/14/24 08:30 Stool Clostridium difficile Toxin Assay Pending Resulted Problem List/Assessment/Plan Problem List/Assessment/Plan #Sepsis due to Acute bacterial gastroenteritis due to campylobacter jejuni #Obesity #Marijuana abuse #KELLY due to VMN Clear liquid diet IV fluids given, 1 extra bolus of NS Azithromycin started Metronidazole Ondansetron Pantoprazole Case discussed with Dr Harrell Full code Plan discussed with: Patient, Other (rn) My Orders My Orders Orders - GAIL ANGUIANO Procedure Category Date Status Time Azithromycin 500mg/ PHA 12/14/24 In Process 250ml (Zithromax 50 16:45 Clear Liq Diet DIET 12/14/24 Transmitted Dinner Date of Service: Dec 15, 2024 Billing Provider: DIPTI HARRELL MD Common Visit Codes: [id number] INP/OBS CARE(HIGH) GAIL ANGUIANO RESIDENT Dec 15, 2024 16:13 DIPTI HARRELL MD Dec 18, 2024 22:17
[2024-12-16 01:00] VITALS: BP 123/62; PULSE 61; RESP 18; TEMP 97.4; O2SAT 98
[2024-12-16 05:00] VITALS: BP_SYST 0; BP_SYST 116; BP_DIAS 65; PULSE 70; RESP 18; TEMP 97.5; O2SAT 99
[2024-12-16 05:53] LABS: Basophils # (auto) 0 10 ^3/uL (0-0.2); Basophils % (auto) 0.2 % (0.0-2.0); Eosinophils # (auto) 0.3 10 ^3/uL (0-0.8); Hematocrit 38.3 % (41.0-53.0); Hemoglobin 12.8 g/dL (13.5-17.5); Lymphocytes # (auto) 1.7 10 ^3/uL (0.4-5.4); Lymphocytes % (auto) 22.7 % (10.0-50.0); Mean Corpuscular Hemoglobin 25.7 pg (28.0-32.0); Mean Corpuscular Hgb Conc. 33.3 g/dL (32.0-36.0); Mean Corpuscular Volume 77.2 fL (80.0-100.0); Monocytes # (auto) 0.8 10 ^3/uL (0-1.3); Monocytes % (auto) 10.2 % (0.0-12.0); Neutrophils # (auto) 4.7 10 ^3/uL (1.6-8.6); Neutrophils % (auto) 62.9 % (37.0-80.0); Platelet Count (auto) 338 10^3/uL (140-450); Red Blood Cells 4.96 10^6/uL (4.5-5.90); Red Cell Distribution Width 13.9 % (11.8-14.3); White Blood Cell 7.4 10^3/uL (4.4-10.8)
[2024-12-16 06:07] LABS: Alanine Aminotransferase 18 U/L (7-40); Alkaline Phosphatase 88 U/L (46-116); Anion Gap 8 (5-15); Calcium 9.7 mg/dL (8.7-10.4); Carbon Dioxide 26 mmol/L (20-31); Glucose 87 mg/dL (74-106); Potassium 3.5 mmol/L (3.5-5.1); Sodium 142 mmol/L (136-145)
[2024-12-16 06:08] LABS: Albumin 4.2 g/dL (3.2-4.8); Aspartate Aminotransferase 15 U/L (<34)
[2024-12-16 06:09] LABS: Bilirubin, Total 0.5 mg/dL (0.2-1.0)
[2024-12-16 06:10] LABS: Blood Urea Nitrogen 9 mg/dL (9-23); Chloride 108 mmol/L (98-107)
--- NOTE | 2024-12-16 06:26 | ECG ---
[facility] Test Date: 2024-12-16 Test Time: 06:24:26 Pat Name: AISHA MORELAND Department: Room: 0212T A Gender: M Machine Operator Packaging: YOLI : 2005 Requested By: GAIL PICKARD Order Number: [id number] Reading MD: Charli Diallo Measurements Intervals [place] Rate: 55 P: 21 AK: 149 QRS: 46 QRSD: 108 T: 11 QT: 465 QTc: 445 Interpretive Statements Sinus arrhythmia Electronically Signed On 12-16-2024 20:22:50 PDT by Charli Diallo Please click the below link to view image of tracing.
[2024-12-16 08:22] VITALS: PULSE 67
[2024-12-16 09:00] VITALS: BP 104/56; PULSE 62; RESP 20; TEMP 98.7; O2SAT 97
[2024-12-16] MEDS ORDERED: AZIT-185 PO (11:43)
[2024-12-16 11:55] VITALS: TEMP 37.1
[2024-12-16 12:07] LABS: Cytoplasmic (C-ANCA) <1:20 titer (Neg:<1:20); Perinuclear (P-ANCA) <1:20 titer (Neg:<1:20)
--- NOTE | 2024-12-16 13:25 | DVHDSRES ---
Discharge Summary Date of Admission Resident Creating Document: GAIL ANGUIANO RESIDENT Dec 13, 2024 at 22:39 Date of Discharge: Dec 16, 2024 Admitting Diagnosis Epigastric abdominal pain with diarrhea associated with dried weakness and near- syncope Labs/Diagnostic Data: Laboratory Results Test 12/16/24 04:20 12/14/24 08:30 12/14/24 08:28 12/13/24 23:41 White Blood Count 7.4 10^3/uL (4.4-10.8) Red Blood Count 4.96 10^6/uL (4.5-5.90) Hemoglobin 12.8 g/dL (13.5-17.5) Hematocrit 38.3 % (41.0-53.0) Mean Corpuscular Volume 77.2 fL (80.0-100.0) Mean Corpuscular Hemoglobin 25.7 pg (28.0-32.0) Mean Corpuscular Hemoglobin Concent 33.3 g/dL (32.0-36.0) Red Cell Distribution Width 13.9 % (11.8-14.3) Platelet Count 338 10^3/uL (140-450) Mean Platelet Volume 7.3 fL (6.9-10.8) Neutrophils (%) (Auto) 62.9 % (37.0-80.0) Lymphocytes (%) (Auto) 22.7 % (10.0-50.0) Monocytes (%) (Auto) 10.2 % (0.0-12.0) Eosinophils (%) (Auto) 4.0 % (0.0-7.0) Basophils (%) (Auto) 0.2 % (0.0-2.0) Neutrophils # (Auto) 4.7 10 ^3/uL (1.6-8.6) Lymphocytes # (Auto) 1.7 10 ^3/uL (0.4-5.4) Monocytes # (Auto) 0.8 10 ^3/uL (0-1.3) Eosinophils # (Auto) 0.3 10 ^3/uL (0-0.8) Basophils # (Auto) 0 10 ^3/uL (0-0.2) Nucleated Red Blood Cells 0.0 % Sodium Level 142 mmol/L (136-145) Potassium Level 3.5 mmol/L (3.5-5.1) Chloride Level 108 mmol/L (98-107) Carbon Dioxide Level 26 mmol/L (20-31) Anion Gap 8 (5-15) Blood Urea Nitrogen 9 mg/dL (9-23) Creatinine 1.12 mg/dL (0.700-1.30) Glomerular Filtration Rate Calc 96 mL/min (>90) BUN/Creatinine Ratio 8.0 (10.0-20.0) Serum Glucose 87 mg/dL (74-106) Calcium Level 9.7 mg/dL (8.7-10.4) Total Bilirubin 0.5 mg/dL (0.2-1.0) Aspartate Amino Transferase (AST) 15 U/L (<34) Alanine Aminotransferase (ALT) 18 U/L (7-40) Alkaline Phosphatase 88 U/L (46-116) Total Protein 7.0 g/dL (5.7-8.2) Albumin 4.2 g/dL (3.2-4.8) Stool Occult Blood Positive (Negative) Stool Occult Blood Sample #3 (Negative) Stool for White Cells Moderate Urine Color Yellow (Yellow) Urine Clarity Clear (Clear) Urine pH 5.5 (5.0-9.0) Urine Specific [employer] > 1.050 (1.001-1.035) Urine Protein Trace (Negative) Urine Ketones Negative (Negative) Urine Blood Negative /uL (Negative) Urine Nitrite Negative (Negative) Urine Bilirubin Negative (Negative) Urine Urobilinogen Normal mg/dL (Negative) Urine Leukocyte Esterase Negative /uL (Negative) Urine RBC 1 /hpf (0 - 3) Urine Microscopic WBC 1 /HPF (0-3) Urine Squamous Epithelial Cells None seen /hpf (<5) Urine Bacteria None seen /hpf (None Seen) Urine Glucose Normal mg/dL (Normal) Urine Opiates Screen Neg (NEGATIVE) Urine Fentanyl Screen Neg (NEGATIVE) Urine Barbiturates Screen Neg (NEGATIVE) Urine Phencyclidine Screen Neg (NEGATIVE) Urine Amphetamines Screen Neg (NEGATIVE) Urine Benzodiazepines Screen Neg (NEGATIVE) Urine Cocaine Screen Neg (NEGATIVE) Urine Cannabinoids Screen Pos (NEGATIVE) Anti-Nuclear Antibody Comment Comment (.) Cytoplasmic ANCA (c-ANCA) Antibody <1:20 titer (Neg:<1:20) Atypical p-ANCA <1:20 titer (Neg:<1:20) Perinuclear ANCA (p-ANCA) Antibody <1:20 titer (Neg:<1:20) Test 12/13/24 23:13 12/13/24 20:54 12/13/24 20:45 12/13/24 19:54 Erythrocyte Sedimentation Rate 15 mm/hr (0-20) Prothrombin Time 10.4 sec (9.3-11.8) Prothrombin Time INR 0.98 (0.9-1.15) Activated Partial Thromboplast Time 27.4 SEC (24.5-34.5) Lactic Acid Level 1.3 mmol/L (0.4-2.0) C-Reactive Protein High Sensitivity 1.38 mg/dL (<1.0) Lipase 34 U/L (12-53) Plasma/Serum Blood Alcohol < 3.0 mg/dL (<10) HIV (1&2) Antibody Negative (Negative) Direct Bilirubin 0.2 mg/dL (<0.3) Troponin I High Sensitivity < 3 ng/L (</=54) Differential Total Cells Counted 100.0 (100) Neutrophils % (Manual) 88 (37.0-80.0) Band Neutrophils % (Manual) 4 Lymphocytes % (Manual) 4 (10.0-50.0) Monocytes % (Manual) 3 (0-12) Eosinophils % (Manual) 1 (0-7) Basophils % (Manual) 0 (0.0-2.0) Metamyelocytes % (manual) 0 Myelocytes % (Manual) 0 Promyelocytes % (Manual) 0 Blast Cells % (Manual) 0 Reactive Lymphocytes 0 Platelet Estimate Adequate Microcytosis Slight Iron Level 28 ug/dL (65-175) Total Iron Binding Capacity 333 ug/dL (250-425) Percent Iron Saturation 8.4 % (20-55) Thyroid Stimulating Hormone (TSH) 0.81 uIU/mL (0.55-4.78) Other Laboratory Tests 12/16/24 04:20 Brief Hx & Hospital Course: Mr. Garcia presented to the ED with complaints of acute epigastric abdominal pain and a near-syncopal episode, preceded by profuse watery diarrhea and weakness. He was initially evaluated by EMS but declined transport, later returning due to persistent symptoms. On admission, he denied fever, chills, nausea, vomiting, or chest pain. He was hemodynamically stable. Labs confirmed Campylobacter jejuni infection. He was started on azithromycin and metronidazole, and IV fluids were administered (including one additional bolus of NS). Supportive therapy included clear liquid diet, ondansetron, and pantoprazole. His KELLY was attributed to volume depletion from diarrhea and improved with fluid resuscitation. He was monitored for response to antibiotics, and by 12/15/24, he had 1 bowel movement, and his condition stabilized. Discharge Condition: Stable Discharge Medications: Azithromycin (as per treatment course) Continue hydration and rest Avoid marijuana use Follow-Up: PCP follow-up within 1 week Monitor renal function and hydration status Instructions: Adhere to a bland diet until full resolution of symptoms Maintain good hydration Avoid recreational drug use Physical examination on the day of discharge: General Appearance: Alert, Oriented X3, Cooperative, mild distress HEENT: Atraumatic, PERRLA, EOMI, Other (Dry mucous membrane, low turgor) Respiratory: Clear to auscultation, Normal air movement, Other (Breathing in the room air) Cardiovascular: Regular rate, Normal S1, Normal S2, No murmurs, Other (Hemodynamically stable) Abdominal: Soft, No hepatosplenomegaly, No masses, Other (Increased GI bowel sounds no focal tenderness noted.) Extremities: No clubbing, No cyanosis, No edema, Normal pulses, No tenderness/swelling Skin: No rashes, No breakdown, No significant lesion Neuro: Normal gait, Normal speech, Strength at 5/5 X4 ext, Normal tone, Sensation intact, Cranial nerves 3-12 NL, Reflexes 2+, Other (No focal neuro deficits) Psych/Mental Status: Mental status NL, Mood NL, Counseled marijuana use cessation for 16 minutes Goals of care discussed with the patient for 20 minutes; full code Case discussed with Dr Spear Operations or Procedures CT OF THE ABDOMEN AND PELVIS WITH CONTRAST. HISTORY: abdominal pain COMPARISON: None TECHNIQUE: Helical axial CT images of the abdomen and pelvis were obtained with intravenous contrast. Multiplanar reformats. One or more of the following radiation dose reduction techniques were used for this examination: automated exposure control, adjustment of the mA and/or kV according to patient size, use of iterative reconstruction technique. FINDINGS: Imaged lung bases are grossly clear. Liver: No discrete hepatic lesions as visualized. Gallbladder and biliary system: No sizable, radiopaque cholelithiasis or biliary ductal dilatation. Pancreas: Negative. Spleen: Negative. Adrenal Glands: Negative. Kidneys and collecting system: No hydroureteronephrosis. Symmetrical enhancement. Retroperitoneum: No evidence of abdominal aortic aneurysm. Lymph nodes: No discretely enlarged lymph nodes identified. Bowel: No evidence of bowel obstruction. Normal caliber appendix. No free intraperitoneal air or fluid identified. Pelvis: No sizable bladder calculus. Small fat containing right inguinal hernia. Osseous structures: No destructive osseous lesions identified. IMPRESSION: No bowel obstruction, free intraperitoneal air/ fluid or sizable inflammatory collections identified at this time. Condition at Discharge: Stable Final Diagnosis/Problems List #Sepsis due to Acute bacterial gastroenteritis due to campylobacter jejuni #Presyncope due to above #Obesity #Marijuana abuse #KELLY due to VMN resolved Discharge Disposition: Home Discharge Instruct/Medications Diet: See Comment Diet comment: please advance diet slowly Activity: No Restrictions, As Tolerated Follow Up/Referral: Discharge clinic next week Medications: see prescription Discharge Statement: "Patient was advised to return to the ER or call 911 if any headaches, dizziness, shortness of breath, chest pain, abdominal pain, bleeding, fevers, or worsening of medical condition. Patient was counseled about treatment plan, medications, possible side effects, patientverbalized understanding. All questions were answered to the best of my ability. This discharge took greater then 30 minutes in planning, reviewing documentation, counseling the patient, and discussing with other team members." ASSESSMENT ASSESSMENT Assessment acute bacterial gastroenteritis due to campylobacter jejuni Addendum Addendum Addendum I was physically present for the marin portions of the service provided to patient by THE RESIDENT. I have reviewed the documentation, discussed the case with resident and agree with the resident's documentation except as noted. Also the patient's clinical case was discussed with the patient's nurse. This medical document was created using an electronic medical record system with computerized dictation system. Although this document has been carefully reviewed, there might still be some phonetic and typographical errors. These areas are purely typographical due to imperfections of the software programs, and do not reflect any compromise in the patient's medical care. Late signature. Date of Service: Dec 16, 2024 Billing Provider: JEWELL SPEAR MD Common Visit Codes: 84891-OIL/OBS DISCH DAY >30min Secondary Visit Codes: [id number] CHNG SMOKING >10MIN (Counseled on marijuana use cessation for 16 minutes), [id number] CARE PLAN 30 MINUTES (20 minute) GIAL ANGUIANO RESIDENT Dec 16, 2024 13:25 JEWELL SPEAR MD Dec 17, 2024 13:39
[2024-12-17 13:07] LABS: Antimyeloperoxidase (MPO) Ab <0.2 units (0.0-0.9); Antiproteinase 3 (PR-3) Ab <0.2 units (0.0-0.9)
[2024-12-18 15:07] LABS: Anti-Centromere B Antibody <0.2 AI (0.0-0.9); Anti-Jo-1 Antibody <0.2 AI (0.0-0.9); Anti-dsDNA Antibody 1 IU/mL (0-9); Antichromatin Antibody <0.2 AI (0.0-0.9); Antiscleroderma-70 Antibody <0.2 AI (0.0-0.9); RNP Antibody <0.2 AI (0.0-0.9); Sjogren's Anti-SS-A Antibody <0.2 AI (0.0-0.9); Sjogren's Anti-SS-B Antibody <0.2 AI (0.0-0.9); Smith Antibody <0.2 AI (0.0-0.9)
== END 2024-12-16 12:35 | disposition home or self-care (01) | DRG 720 ==
LOC: EDBD 19:30 → ER 19:30 → OVERFLOW 22:39 → TELE-CENTR 22:44
PROVIDERS: ADMIT Student in an Organized Health Care Education/Training Program; ATTEND Student in an Organized Health Care Education/Training Program
DX: A41.89 Other specified sepsis (principal); N17.0 Acute kidney failure with tubular necrosis; F12.19 Cannabis abuse with unspecified cannabis-induced disorder; E83.52 Hypercalcemia; D50.9 Iron deficiency anemia, unspecified; N18.4 Chronic kidney disease, stage 4 (severe); D72.829 Elevated white blood cell count, unspecified; E66.813 Obesity, class 3; A04.5 Campylobacter enteritis; Z68.42 Body mass index [BMI] 45.0-49.9, adult; Z79.1 Long term (current) use of non-steroidal anti-inflammatories (NSAID); Z79.899 Other long term (current) drug therapy
CPT/HCPCS: 36415; 70450; 71045; 74177; 80048; 80053; 80076; 80307; 80320; 81001; 82270; 83516; 83520; 83540; 83550; 83605; 83690; 84443; 84484; 85007; 85025; 85027; 85048; 85610; 85652; 85730; 86141; 86225; 86235; 86256; 86703; 87045; 87177; 87427; 87493; 93005; G0378; J2470; J2543; J3490